=== PATIENT | male | born 1965 ===

== ENCOUNTER → 2020-11-19 | Outpatient (REF) ==
--- NOTE | 2020-11-19 12:26 | REP ---
INDICATION: NECK, BACK PAIN. COMPARISON: None TECHNIQUE: Three views FINDINGS: Vertebral body height and alignment is within normal limits. There is minimal anterior lipping and minimal bilateral marginal osteophytosis at all levels. The disc spaces are symmetric and relatively well maintained. The pedicles are intact bilaterally. There is no evidence of significant degenerative facet joint change. Calcifications are seen anterior to the spine consistent with aortic and iliac calcifications. IMPRESSION: Chronic changes as described above. <Electronically signed by Darryl Louie > 11/19/20 [id number]
--- NOTE | 2020-11-19 12:28 | REP ---
INDICATION: NECK, BACK PAIN. COMPARISON: None TECHNIQUE: AP, lateral, open-mouth, and swimmer's view FINDINGS: There is degenerative disc space narrowing seen at C5-6 and C6-7 were anterior and posterior osteophytic ridging is the heaviest. There is a 2 mm anterolisthesis of C4 on C5. There is a mild levoconvex thoracic curve. Mild hypertrophic degenerative facet and uncovertebral joint changes are present at every level bilaterally. The dens cannot be effectively evaluated secondary to the superimposition of osseous structures and/or dentition on all views. IMPRESSION: Chronic changes seen on this limited exam as described above. <Electronically signed by Darryl Louie > 11/19/20 [id number]
== END ==
LOC: M PLAIMG 10:38
PROVIDERS: ATTEND Internal Medicine
DX: M54.2 Cervicalgia (principal); M54.5 Low back pain